=== PATIENT | female | born 1935 | race Caucasian/White ===

== ENCOUNTER 2018-08-19 19:05 | Inpatient (IN) | payer OTHER ==
[~2018-08-19] VITALS: Ht 154.9 cm; Wt 73.5 kg
--- NOTE | 2018-08-19 19:19 | NUR ---
BIB [facility] FROM [facility] FOR PSYCH EVAL. PT C/O CONSTIPATION X 5 DAYS. SHE IS AOX4, AMB, VSS, RR EVEN AND UNLABORED. SKIN WARM DRY INTACT. DENIES SOB, DIZZINESS, WEAKNESS, N/V. NO ACUTE DISTRESS NOTED. FRIEND AT BEDSIDE. READY FOR EVAL.
[2018-08-19 19:58] LABS: BASOPHILS # (AUTO) 0.1 /CMM (0.0-0.2); BASOPHILS % (AUTO) 0.9 % (0.0-2.0); EOSINOPHILS % (AUTO) 0.7 % (0.0-6.0); HEMATOCRIT 38 % (33-45); LYMPHOCYTES # (AUTO) 1.8 /CMM (0.8-4.8); LYMPHOCYTES % (AUTO) 13.5 % (20.0-44.0); MEAN CORPUSCULAR HGB CONC 34 g/dl (31.0-36.0); MEAN CORPUSCULAR VOLUME 88 fL (82-100); MONOCYTES # (AUTO) 0.6 /CMM (0.1-1.30); MONOCYTES % (AUTO) 4.6 % (2.0-12.0); NEUTROPHILS # (AUTO) 10.6 /CMM (1.8-8.9); NEUTROPHILS % (AUTO) 80.3 % (43.0-81.0); PLATELET COUNT (AUTO) 239 /CMM (150-450); RED BLOOD CELL COUNT(AUTO) 4.36 MIL/uL (4.0-5.2); WHITE BLOOD COUNT (AUTO) 13.2 K/uL (4.3-11.0)
[2018-08-19 20:07] LABS: CARBON DIOXIDE 27 mmol/L (21-32); CHLORIDE 106 mmol/L (98-107); CREATININE 1.5 mg/dL (0.6-1.3); GLUCOSE 232 mg/dL (74-106); POTASSIUM 4.3 mmol/L (3.5-5.1); SODIUM SERUM 140 mmol/L (136-145); UREA NITROGEN, BLOOD 26 mg/dL (7-18)
[2018-08-19 20:24] LABS: ALANINE AMINOTRANSFERASE 14 U/L (12-78); ALCOHOL, BLOOD < 3 mg/dL (0-0); ALKALINE PHOSPHATASE 126 U/L (46-116); ASPARTATE AMINOTRANSFERASE 6 U/L (15-37); BILIRUBIN,DIRECT 0.1 mg/dL (0.0-0.2); BILIRUBIN,TOTAL 0.4 mg/dL (0.2-1.0); SALICYLATE 1.2 mg/dL (2.8-20.0); TOTAL PROTEIN, SERUM 6.5 g/dL (6.4-8.2)
[2018-08-19 20:25] LABS: ACETAMINOPHEN < 2 ug/ml (10-30)
--- NOTE | 2018-08-19 20:37 | NUR ---
URINE OBTAINED AND SENT TO STAT LAB
[2018-08-19 20:41] LABS: APPEARANCE,URINE Clear (CLEAR); BILIRUBIN,URINE Negative (NEGATIVE); BLOOD, URINE Trace-intact Ery/uL (NEGATIVE); COLOR,URINE Yellow (YELLOW); KETONES,URINE Negative (NEGATIVE); LEUKOCYTE ESTERASE ,URINE Small (NEGATIVE); NITRITE, URINE Negative (NEGATIVE); PH,URINE 5.5 (5.0-8.0); PROTEIN,URINE Negative (NEGATIVE); UGLUCOSE Negative (NEGATIVE); UROBILINOGEN,URINE 0.2 EU/dL (0.2)
[2018-08-19 20:49] LABS: BACTERIA,URINE Few /HPF (None Seen); SQUAMOUS EPITHELIAL CELL,UR Few /HPF (None Seen)
[2018-08-19 20:50] LABS: RBC,URINE 0-2 /HPF (0-2)
[2018-08-19] MEDS ORDERED: MAGNESIUM HYDROXIDE 30 ML UDC ONE (21:39)
[2018-08-19] MEDS ORDERED: OLANZAPINE 5 MG TABLET ONE (21:40)
[2018-08-19] MEDS ORDERED: LORAZEPAM 1 MG TABLET ONE (21:40)
[2018-08-19] MEDS ORDERED: LORAZEPAM 1 MG TABLET PO ONE (22:00)
[2018-08-19] MEDS ORDERED: OLANZAPINE 5 MG TABLET PO ONE (22:00)
[2018-08-19] MEDS ORDERED: MAGNESIUM HYDROXIDE 30 ML UDC PO ONE (22:00)
--- NOTE | 2018-08-19 22:10 | NUR ---
PT GETTING INCREASINGLY AGITATED. ATTEMPTS TO CALM HER
[2018-08-19] MEDS ORDERED: NA PHOS,M-B/NA PHOS,DI-BA 1 EA ENEMA RC ONE ×2 (22:56→23:30)
--- NOTE | 2018-08-19 23:05 | NUR ---
ATTEMPTED TO ADMIN FLEET ENEMA PER MD, HOWEVER PT COMPLAINED OF TOO MUCH PAIN AND ASKED TO STOP. MD AWARE
[2018-08-19] MEDS ORDERED: POLYETHYLENE GLYCOL 3350 17 GM POWD.PACK ONE (23:15)
[2018-08-19] MEDS ORDERED: POLYETHYLENE GLYCOL 3350 17 GM POWD.PACK PO ONE (23:30)
[2018-08-20] MEDS ORDERED: MAGNESIUM CITRATE 296 ML BOTTLE ONE (00:56)
[2018-08-20] MEDS: MAGNESIUM CITRATE 296 ML BOTTLE PO ONE ×2 (01:02→01:03)
[2018-08-20] MEDS ORDERED: LACTULOSE 10 G/15 ML UDC (PYXIS) ONE (01:49)
--- NOTE | 2018-08-20 01:56 | NUR ---
[facility], TRIP # [id number]
[2018-08-20] MEDS ORDERED: LACTULOSE 10 G/15 ML UDC (PYXIS) PO ONE (02:00)
--- NOTE | 2018-08-20 02:03 | NUR ---
DR MCPHERSON IS SPEAKING TO THE PT. PER DR. MCPHERSON, I'M CALLING [facility] TO GET THE PT'S DAUGHTER'S PHONE NUMBER. SPOKE TO THANH WILLIAM. THE NURSING SMUDGER STATED THAT THE PT IS SINGLE AND HAS NO CHILDREN
--- NOTE | 2018-08-20 02:15 | NUR ---
Per dr Rodriguez pt ok to be discharged home. Pt a/ox3. No signs of distress noted. pt vital signs stable.
--- NOTE | 2018-08-20 02:40 | NUR ---
nursing rate supervisor speaking with patient
--- NOTE | 2018-08-20 04:15 | NUR ---
PT AMBULATED TO ER 6. PT STATED THAT SHE HAD A SMALL WATERY BM, BUT STILL FEELS CONSTIPATED. PT REC'D A WARM BLANKET AND THE OVERHEAD LIGHTS WERE TURNED OFF AT PT'S REQUEST. PT APPEARS TO BE RESTING COMFORTABLY.
--- NOTE | 2018-08-20 05:45 | NUR ---
PT AMBULATED TO THE BATHROOM WITH A SLOW STEADY GAIT. PT STATED THAT SHE FEELS NAUSEATED. NOTIFIED.
--- NOTE | 2018-08-20 06:01 | NUR ---
PT RETURNED TO ER #6 WITH A STEADY GAIT. PT STATED THAT SHE FELT NAUSEATED.
--- NOTE | 2018-08-20 06:01 | NUR ---
PT STATED: " I CAN'T GO HOME. THERE'S NO ONE THERE TO HELP ME."
--- NOTE | 2018-08-20 06:50 | NUR ---
PT YELLED OUT THAT SHE WAS COLD. PT REC'D 2 MORE WARM BLANKETS. PT C/O FEELING COLD AND NOT BEING HELPED. PT STATED: " I WANT TO GO HOME AND I WILL TAKE CARE OF MYSELF.i WILL HIRE SOMEONE IF I NEED HELP. I HAVE MONEY TO DO THAT AND A WARM HOUSE AND BLANKETS."
--- NOTE | 2018-08-20 08:00 | NUR ---
PT DOES NOT WANT TO GO BACK TO [facility], AWAITING ELECTRIC SEALING MACHINE OPERATOR TO SPEAK W PT
--- NOTE | 2018-08-20 08:02 | NUR ---
SPOKE WITH [employer] PROGRAMMER KRISSY, WHO STATED SHE WILL COORDINATE WITH [facility] TO FIND ALTERNATIVE PLACEMENT FOR THE PATIENT
--- NOTE | 2018-08-20 09:00 | NUR ---
BREAKFAST TRAY GIVEN TO PT
--- NOTE | 2018-08-20 09:01 | NUR ---
ED NOTES, LABS, MEDS, CRISIS TEAM EVAL FAXED TO [facility] AT [phone] @ 0901 - FAXED OK. CREDIT RISK ASSOCIATE CRISTINA DUMONT [phone] WILL TRY TO FIND ANOTHER FACILITY.
--- NOTE | 2018-08-20 09:40 | NUR ---
KEY PUNCH OPERATOR AT BEDSIDE
[2018-08-20] MEDS ORDERED: ONDA4TAB5 PO (11:15)
[2018-08-20] MEDS ORDERED: NA P133E RC (11:15)
[2018-08-20] MEDS ORDERED: RISP0.253 PO (11:15)
[2018-08-20] MEDS ORDERED: GABA-534 PO (11:15)
[2018-08-20] MEDS ORDERED: LINA145C PO (11:15)
[2018-08-20] MEDS ORDERED: PANT40TA2 PO (11:15)
[2018-08-20] MEDS ORDERED: CLOT10TR MM (11:15)
[2018-08-20] MEDS ORDERED: AMIN30LI2 PO (11:15)
[2018-08-20] MEDS ORDERED: MULT-447 PO (11:15)
[2018-08-20] MEDS ORDERED: CELE200C PO (11:15)
[2018-08-20] MEDS ORDERED: CYAN500T4 PO (11:15)
[2018-08-20] MEDS ORDERED: SENN-168 PO (11:15)
[2018-08-20] MEDS ORDERED: TRAM50TA2 PO (11:15)
[2018-08-20] MEDS ORDERED: HYDR30CR99 RC (11:15)
[2018-08-20] MEDS ORDERED: DOCU-141 PO (11:15)
--- NOTE | 2018-08-20 12:51 | NUR ---
LUNCH TRAY GIVEN TO PT. TOLERATING PO WELL
--- NOTE | 2018-08-20 14:08 | NUR ---
PT RESTING COMFORTABLY IN BED. WILL CONTINUE TO MONITOR
--- NOTE | 2018-08-20 16:08 | NUR ---
PT AGITATED, BELLIGERENT, VERBALLY ABUSIVE, SPITS TO STAFF, INISISTING SHE WANTS TO GO HOME.
[2018-08-20] MEDS ORDERED: OLANZAPINE 10 MG VIAL IM ONE ×2 (16:14→16:30)
[2018-08-20] MEDS ORDERED: LORAZEPAM INJ 2 MG/ML VIAL IVP ONE (16:30)
--- NOTE | 2018-08-20 16:42 | NUR ---
PT AGITATED, KEEPS ON WANDERING AROUND ED STATING SHE WANTS TO GO HOME, HITS STAFF, BITES ANYONE WHO HOLDS HER. EXPLAINED THAT WE CANNOT CONTACT HER DAUGHTER. PT CONTINOUSLY CURSES AND HITS STAFF
[2018-08-20] MEDS ORDERED: LORAZEPAM INJ 2 MG/ML VIAL ONE (17:04)
[2018-08-20] MEDS ORDERED: LORAZEPAM INJ 2 MG/ML VIAL IM ONE (17:30)
--- NOTE | 2018-08-20 19:24 | NUR ---
Patient is resting comfortably in bed with eyes closed. Easily aroused. VSS
--- NOTE | 2018-08-20 19:59 | NUR ---
REPORT GIVEN TO ELIZABETH PSYCH FOR CONTINUATION OF CARE.
--- NOTE | 2018-08-20 21:00 | NUR ---
GPS HIGHWAY ENGINEER NOTES Received patient from ER via rney accompanied by 1 ER staff. 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 Barnes and LUTHER Easton. Patient on 5150 hold due to danger to self trying, to escape from ER. Admission routine done. Initial skin assessment done, photos taken and documented. Patient is A/O x1, confused, unkempt, disheveled, cooperative and obeys commands. No aggitation noted. Ambulatory with unsteady gait noted. Able to walk from bed to bathroom with 1 person assist. Belongings inventory completed by the PHYS THER assigned. Patient denies any discomfort at this time. On RA, no SOB/respiratory distress noted. Kept patient comfortable on bed. Kept bed in lowest position and locked, siderails x3 up. Call light at bedside. Will continue to monitor accordingly. ADMITTED A 78YO FEMALE FROM [facility] ON 5150 HOLD FOR DANGER TO SELF. PER HOLD , THE PATIENT WAS BROUGHT TO [facility] AFTER SHE OVERDOSED ON PRESCRIBED MEDICATIONS. SHE WAS FOUND BY FAMILY MEMBERS ON THE FLOOR WITH DRY VOMIT NEXT TO HER MOUTH.
[2018-08-20] MEDS ORDERED: ACETAMINOPHEN 325 MG TABLET PO PRN (22:00)
[2018-08-20] MEDS ORDERED: LORAZEPAM 0.5 MG TABLET PO PRN (22:00)
[2018-08-20] MEDS ORDERED: MAG HYDROX/AL HYDROX/SIMETH 30 ML UDC PO PRN (22:00)
[2018-08-21] MEDS ORDERED: HYDROCORTISONE CR 30 GM TUBE RC PRN (06:00)
[2018-08-21] MEDS: NITROFURANTOIN/NITROFURAN MAC 100 MG CAPSULE PO SCH ×3 (06:14→21:57)
[2018-08-21 07:31] LABS: CREATININE 1.4 mg/dL (0.6-1.3)
[2018-08-21 07:35] LABS: BASOPHILS # (AUTO) 0.1 /CMM (0.0-0.2); BASOPHILS % (AUTO) 0.7 % (0.0-2.0); CHOLESTEROL 211 mg/dL (<200); EOSINOPHILS % (AUTO) 1.8 % (0.0-6.0); HDL CHOLESTEROL 54 mg/dL (40-60); HEMATOCRIT 37 % (33-45); HEMOGLOBIN 12.5 g/dL (11.5-14.8); LDL 137 mg/dL (0-99); LYMPHOCYTES % (AUTO) 18.3 % (20.0-44.0); MEAN CORPUSCULAR HGB CONC 34 g/dl (31.0-36.0); MEAN CORPUSCULAR VOLUME 88 fL (82-100); MONOCYTES # (AUTO) 0.8 /CMM (0.1-1.30); MONOCYTES % (AUTO) 7.8 % (2.0-12.0); NEUTROPHILS # (AUTO) 7.7 /CMM (1.8-8.9); NEUTROPHILS % (AUTO) 71.4 % (43.0-81.0); PLATELET COUNT (AUTO) 226 /CMM (150-450); RED BLOOD CELL COUNT(AUTO) 4.17 MIL/uL (4.0-5.2); TRIGLYCERIDES 105 mg/dL (30-150); WHITE BLOOD COUNT (AUTO) 10.8 K/uL (4.3-11.0)
[2018-08-21 07:54] LABS: CALCIUM, SERUM 8.6 mg/dL (8.5-10.1); CARBON DIOXIDE 25 mmol/L (21-32); CHLORIDE 109 mmol/L (98-107); CREATININE 1.3 mg/dL (0.6-1.3); GLUCOSE 106 mg/dL (74-106); SODIUM SERUM 143 mmol/L (136-145); UREA NITROGEN, BLOOD 26 mg/dL (7-18)
[2018-08-21 08:00] VITALS: BP 99/56
[2018-08-21] MEDS: CYANOCOBALAMIN 500 MCG TABLET PO SCH (08:17)
[2018-08-21] MEDS: PANTOPRAZOLE 40 MG TABLET.DR PO SCH (08:17)
[2018-08-21] MEDS: DOCUSATE SODIUM 100 MG CAPSULE PO SCH ×2 (08:18→21:57)
[2018-08-21] MEDS: MULTIVITAMINS,THERAGRAN 1 UDTAB TABLET PO SCH (08:18)
[2018-08-21] MEDS: GABAPENTIN 300 MG CAPSULE PO PRN (08:18)
[2018-08-21] MEDS: CLOTRIMAZOLE 10 MG TROCHE MM SCH ×6 (09:03→22:02)
--- NOTE | 2018-08-21 10:52 | NUR ---
WOUND CARE CONSULT: PT SLEEPING VERY SOUNDLY AT THIS TIME. PER NURSING STAFF, PT DID NOT SLEEP LAST NIGHT AND WAS VERY AGITATED. RECOMMENDATIONS MADE FOR SKIN CARE AND PROTECTION BASED ON NURSING DOCUMENTATION AND PHOTOS. WILL SEE PRNDonna MCCLENDON IN AGREEMENT WITH PLAN OF CARE.
[2018-08-21] MEDS: Z GUARD REMEDY 2 OZ OINT TP SCH (11:00)
[2018-08-21] MEDS ORDERED: Z GUARD REMEDY 2 OZ OINT TP PRN (11:00)
[2018-08-21] MEDS: CELECOXIB 100 MG CAPSULE PO SCH ×2 (11:00→21:57)
[2018-08-21 16:00] VITALS: BP 115/44
[2018-08-21] MEDS: CLOTRIMAZOLE 1% 15 GM TUBE TP SCH (16:06)
[2018-08-21 20:00] VITALS: BP 95/72
[2018-08-21 21:00] VITALS: BP 100/67
--- NOTE | 2018-08-21 21:00 | NUR ---
GPS RN NOTES: DR. MURRIETA MADE AWAR OF PT. HAS BEEN VERY SEDATED , WOULD WAKE UP, OPEN EYES BRIEFLY AND WOULD FALL BACK TO SLEEP. VITAL SIGNS STABLE , DR. MURRIETA VERBALIZE ORDERS FOR CHECK BLOOD SUGAR , BLOOD SUGAR # 103 , GIVE ORANGE JUICE WITH HS SNACK , PER DR. MURRIETA WILL CONTINUE TO MONITOR .
[2018-08-21] MEDS: SENNOSIDES 8.6 MG TABLET PO SCH (21:57)
[2018-08-21 23:00] VITALS: BP 102/70
--- NOTE | 2018-08-21 23:00 | NUR ---
GPS RN NOTES : PT. TOOK ALL HS MEDS, NO ACUTE DISTRESS NOTED , DENIES ANY DISCOMFORT, PROVIDE ORAL FLUIDS.
[2018-08-22] MEDS: CLOTRIMAZOLE 10 MG TROCHE MM SCH ×5 (07:00→20:55)
[2018-08-22 08:00] VITALS: BP 124/52
[2018-08-22] MEDS: PANTOPRAZOLE 40 MG TABLET.DR PO SCH (08:11)
[2018-08-22] MEDS: DOCUSATE SODIUM 100 MG CAPSULE PO SCH ×2 (08:11→20:56)
[2018-08-22] MEDS: NITROFURANTOIN/NITROFURAN MAC 100 MG CAPSULE PO SCH (08:11)
[2018-08-22] MEDS: CELECOXIB 100 MG CAPSULE PO SCH ×2 (08:11→20:56)
[2018-08-22] MEDS: CYANOCOBALAMIN 500 MCG TABLET PO SCH (08:11)
[2018-08-22] MEDS: MULTIVITAMINS,THERAGRAN 1 UDTAB TABLET PO SCH (08:11)
[2018-08-22] MEDS: CLOTRIMAZOLE 1% 15 GM TUBE TP SCH ×2 (08:13→17:20)
[2018-08-22] MEDS: Z GUARD REMEDY 2 OZ OINT TP SCH (08:14)
--- NOTE | 2018-08-22 09:11 | NUR ---
WOUND CARE CONSULT: PT PRESENTS WITH RED RASH TO RT BREASTFOLD, PRESENT ON ADMISSION. RECOMMENDATIONS MADE FOR SKIN PROTECTION AND DISCUSSED WITH NURSING STAFF. WILL SEE PRN. MCCLENDON IN AGREEMENT WITH PLAN OF CARE. Addendum: 08/22/18 at 0911 by GENO PORTILLO WNDNU Amended: Links added.
--- NOTE | 2018-08-22 09:32 | NUR ---
SW contacted [facility] Address: [address] [place] [address] and spoke with Ashlyn, sales service coordinator who stated facility is not taking pt back and also stated that pt does not want to be at their facility.
--- NOTE | 2018-08-22 10:59 | NUR ---
INITIAL DISCHARGE PLAN: Pt came from [facility] Address: [address] [place] [address] . However, Facility is not accepting pt back as pt does not want to go back to a SNF. Per pt she wishes to return home to [address] [place] [address]. Pt stated that she would hire a caregiver. SW will help form a safe and proper discharge in collaboration with pt and MD.
--- NOTE | 2018-08-22 11:06 | NUR ---
UR NOTE: CHRISTOPHER faxed SNF referral to Adelina welfare case worker at [facility] [phone] for review.
--- NOTE | 2018-08-22 11:07 | NUR ---
UR NOTE: CHRISTOPHER contacted Lizabeth, aftercare coordinator at [facility] [phone] ext [phone] and left a voicemail informing her pt needs after care appointments to psych and therapy and also home health.
--- NOTE | 2018-08-22 11:45 | NUR ---
GPS RN NOTE: T/O DR KETTY COLÓN MICROBID 100 MG PO Q12 HR ORDER PLACED AND CARED OUT
[2018-08-22 16:00] VITALS: BP 113/63
[2018-08-22] MEDS: MAGNESIUM HYDROXIDE 30 ML UDC PO PRN (17:36)
[2018-08-22 20:51] VITALS: BP 108/66
[2018-08-22] MEDS: MUPIROCIN OINT 2% 22 GM TUBE SCH (20:56)
[2018-08-22] MEDS: risperiDONE 1 MG TABLET PO SCH (21:24)
[2018-08-22] MEDS: SENNOSIDES 8.6 MG TABLET PO SCH (21:25)
[2018-08-22] MEDS: TRAMADOL HCL 50 MG TABLET PO PRN (21:35)
[2018-08-22 22:00] VITALS: BP 117/66
[2018-08-23] MEDS: CLOTRIMAZOLE 10 MG TROCHE MM SCH ×5 (06:45→21:15)
[2018-08-23 08:00] VITALS: BP 104/54
[2018-08-23] MEDS: Z GUARD REMEDY 2 OZ OINT TP SCH (08:27)
[2018-08-23] MEDS: MUPIROCIN OINT 2% 22 GM TUBE SCH ×2 (08:27→21:15)
[2018-08-23] MEDS: CLOTRIMAZOLE 1% 15 GM TUBE TP SCH ×2 (08:44→17:11)
[2018-08-23] MEDS: DOCUSATE SODIUM 100 MG CAPSULE PO SCH ×2 (08:44→21:15)
[2018-08-23] MEDS: CYANOCOBALAMIN 500 MCG TABLET PO SCH (08:44)
[2018-08-23] MEDS: MULTIVITAMINS,THERAGRAN 1 UDTAB TABLET PO SCH (08:44)
[2018-08-23] MEDS: PANTOPRAZOLE 40 MG TABLET.DR PO SCH (08:44)
[2018-08-23] MEDS: risperiDONE 1 MG TABLET PO SCH ×2 (08:44→21:15)
[2018-08-23] MEDS: CELECOXIB 100 MG CAPSULE PO SCH ×2 (08:44→21:15)
[2018-08-23 09:05] LABS: CALCIUM, SERUM 8.8 mg/dL (8.5-10.1); CARBON DIOXIDE 25 mmol/L (21-32); CHLORIDE 108 mmol/L (98-107); CREATININE 1.6 mg/dL (0.6-1.3); GLUCOSE 102 mg/dL (74-106); POTASSIUM 3.9 mmol/L (3.5-5.1); SODIUM SERUM 143 mmol/L (136-145); UREA NITROGEN, BLOOD 47 mg/dL (7-18)
--- NOTE | 2018-08-23 10:14 | NUR ---
UR NOTE: CHRISTOPHER faxed a clinical to Adelina ([phone]), employment evaluator/case manager at [facility] to the fax number: [phone] for review.
[2018-08-23 16:00] VITALS: BP 115/65
[2018-08-23 19:58] VITALS: BP 146/74
[2018-08-23] MEDS: MAGNESIUM HYDROXIDE 30 ML UDC PO PRN (20:05)
[2018-08-23] MEDS: SENNOSIDES 8.6 MG TABLET PO SCH (21:15)
[2018-08-23] MEDS: TRAMADOL HCL 50 MG TABLET PO PRN (21:27)
[2018-08-23 22:15] VITALS: BP 116/65
[2018-08-24] MEDS: CLOTRIMAZOLE 10 MG TROCHE MM SCH ×5 (06:13→20:32)
--- NOTE | 2018-08-24 06:42 | NUR ---
GPS-RN NOTES: PER PATIENT " I WENT TO THE BATHROOM AND I'M FEELING DIZZY". NO C/O NAUSEA OR VOMITING AT THIS TIME. WHEN ASKED PATIENT TO GATHER MORE INFORMATION OR ASSESSMENT PATIENT STATED "GET OUT OF HERE AND TURN OFF THE LIGHT". PATIENT REFUSED TO TAKE VITAL SIGNS DESPITE EDUCATION GIVEN. CHARGE NURSE MADE AWARE. WILL ENDORSE TO THE DAY SHIFT NURSE FOR CONTINUITY OF CARE.
[2018-08-24 08:00] VITALS: BP 111/60
--- NOTE | 2018-08-24 08:37 | NUR ---
UR NOTE: CHRISTOPHER faxed a clinical to Adelina ([phone]), case planner at [facility] to the fax number: [phone] for review.
[2018-08-24] MEDS: risperiDONE 1 MG TABLET PO SCH ×2 (08:38→20:36)
[2018-08-24] MEDS: Z GUARD REMEDY 2 OZ OINT TP SCH (08:38)
[2018-08-24] MEDS: MULTIVITAMINS,THERAGRAN 1 UDTAB TABLET PO SCH (08:38)
[2018-08-24] MEDS: PANTOPRAZOLE 40 MG TABLET.DR PO SCH (08:38)
[2018-08-24] MEDS: CYANOCOBALAMIN 500 MCG TABLET PO SCH (08:38)
[2018-08-24] MEDS: CELECOXIB 100 MG CAPSULE PO SCH (08:38)
[2018-08-24] MEDS: DOCUSATE SODIUM 100 MG CAPSULE PO SCH ×2 (08:38→20:33)
[2018-08-24] MEDS: MUPIROCIN OINT 2% 22 GM TUBE SCH ×2 (08:45→20:33)
[2018-08-24] MEDS: CLOTRIMAZOLE 1% 15 GM TUBE TP SCH ×2 (08:46→16:49)
[2018-08-24 10:00] VITALS: BP 123/65
--- NOTE | 2018-08-24 11:49 | NUR ---
GPS/RN-NOTES DR. METZGER MADE AWARE OF DR. REESE RECOMMENDATIONS TO DC CELEBREX. DR. METZGER VERBAL ORDER TO D/C CELEBREX.NOTED AND CARRIED OUT.
--- NOTE | 2018-08-24 13:32 | NUR ---
UR NOTE: CHRISTOPHER contacted Lizabeth, aftercare coordinator at [facility] [phone] ext [phone] and informed her pt needs after care appointments to psych and therapy and also home health. Lizabeth stated that she would start looking for after care appointments for pt. CHRISTOPHER will request home health order from hospitalist and fax to Lizabeth to receive authorization from [facility]. CHRISTOPHER also requested pts daughter contact information. Per Lizabeth, they do not have a contact number for Daughter and also do not have authorization to speak to her.
[2018-08-24 16:00] VITALS: BP 124/70
[2018-08-25] MEDS: CLOTRIMAZOLE 10 MG TROCHE MM SCH ×5 (07:17→20:41)
[2018-08-25 08:00] VITALS: BP 116/65
--- NOTE | 2018-08-25 08:32 | NUR ---
UR NOTE: CHRISTOPHER faxed a clinical to Adelina ([phone]), pillowcase turner at [facility] to the fax number: [phone] for review.
[2018-08-25] MEDS: PANTOPRAZOLE 40 MG TABLET.DR PO SCH (08:49)
[2018-08-25] MEDS: risperiDONE 1 MG TABLET PO SCH ×2 (09:00→20:43)
[2018-08-25] MEDS: MUPIROCIN OINT 2% 22 GM TUBE SCH ×2 (09:00→20:42)
[2018-08-25] MEDS: Z GUARD REMEDY 2 OZ OINT TP SCH (09:00)
[2018-08-25] MEDS: CYANOCOBALAMIN 500 MCG TABLET PO SCH (09:00)
[2018-08-25] MEDS: DOCUSATE SODIUM 100 MG CAPSULE PO SCH ×2 (09:00→20:43)
[2018-08-25] MEDS: MULTIVITAMINS,THERAGRAN 1 UDTAB TABLET PO SCH (09:00)
[2018-08-25] MEDS: CLOTRIMAZOLE 1% 15 GM TUBE TP SCH ×2 (09:00→16:07)
--- NOTE | 2018-08-25 09:41 | NUR ---
GPS/RN-NOTES PATIENT STRONGLY REFUSED ALL 0900AM MEDICATIONS. EXPLAINED RISK AND BENEFITS BUT PATIENT GETS ANGRY AT THE MANAGER COST. STATED" GO AWAY I DON'T TAKE MEDICATIONS ,YOU TAKE IT AND LEAVE ME ALONE". OFFERED X3. CHARGE NURSE AWARE.
--- NOTE | 2018-08-25 11:07 | NUR ---
UR NOTE: CHRISTOPHER faxed home health referral to Adelina ([phone]), hospice case manager at [facility] to the fax number: [phone]
[2018-08-25 16:00] VITALS: BP 102/71
[2018-08-26] MEDS: CLOTRIMAZOLE 10 MG TROCHE MM SCH ×5 (06:52→21:00)
[2018-08-26] MEDS: PANTOPRAZOLE 40 MG TABLET.DR PO SCH (07:30)
[2018-08-26 08:00] VITALS: BP 154/85
[2018-08-26] MEDS: Z GUARD REMEDY 2 OZ OINT TP SCH (09:00)
[2018-08-26] MEDS: DOCUSATE SODIUM 100 MG CAPSULE PO SCH ×2 (09:00→21:00)
[2018-08-26] MEDS: CYANOCOBALAMIN 500 MCG TABLET PO SCH (09:00)
[2018-08-26] MEDS: MULTIVITAMINS,THERAGRAN 1 UDTAB TABLET PO SCH (09:00)
[2018-08-26] MEDS: risperiDONE 1 MG TABLET PO SCH ×2 (09:00→21:00)
[2018-08-26] MEDS: MUPIROCIN OINT 2% 22 GM TUBE SCH ×2 (09:00→21:00)
[2018-08-26] MEDS: CLOTRIMAZOLE 1% 15 GM TUBE TP SCH ×2 (09:00→16:48)
--- NOTE | 2018-08-26 12:12 | NUR ---
GPS/RN PT REFUSED 0900 AND 1100 MEDS OFFERED ON MULTIPLE OCCASIONS. PT REFUSED TO EAT BREAKFAST AND REFUSED TO GET OUT OF THE BED WELL. PT IS PARANOID AND STATES :" I AM .." NO SI OR HI NOTED AT THIS TIME.
[2018-08-26 16:00] VITALS: BP_SYST 117; BP_SYST 140; BP_DIAS 69; BP_DIAS 72
--- NOTE | 2018-08-26 22:19 | NUR ---
REFUSED NIGHT MEDICATIONS AND TREATMENT AND SKIN CARE. VERY UNCOOPERATIVE, VERBALLY ABUSIVE.
--- NOTE | 2018-08-27 00:30 | NUR ---
GPS RN NOTES PT SLEEPING. EASILY AROUSABLE. NOT IN ANY DISTRESS. NO SOB NOTED. NO S/SX OF ANY PAIN OR DISCOMFORT AT THIS TIME. WILL CONTINUE TO MONITOR FOR BEHAVIOR AND SAFETY.
[2018-08-27] MEDS: CLOTRIMAZOLE 10 MG TROCHE MM SCH ×5 (07:00→21:00)
[2018-08-27 07:12] LABS: BASOPHILS # (AUTO) 0.1 /CMM (0.0-0.2); BASOPHILS % (AUTO) 0.8 % (0.0-2.0); EOSINOPHILS % (AUTO) 2.7 % (0.0-6.0); HEMATOCRIT 34 % (33-45); HEMOGLOBIN 11.7 g/dL (11.5-14.8); LYMPHOCYTES # (AUTO) 2.2 /CMM (0.8-4.8); LYMPHOCYTES % (AUTO) 23.8 % (20.0-44.0); MEAN CORPUSCULAR HGB CONC 34 g/dl (31.0-36.0); MEAN CORPUSCULAR VOLUME 87 fL (82-100); MONOCYTES # (AUTO) 0.9 /CMM (0.1-1.30); MONOCYTES % (AUTO) 9.3 % (2.0-12.0); NEUTROPHILS # (AUTO) 5.9 /CMM (1.8-8.9); NEUTROPHILS % (AUTO) 63.4 % (43.0-81.0); PLATELET COUNT (AUTO) 268 /CMM (150-450); RED BLOOD CELL COUNT(AUTO) 3.92 MIL/uL (4.0-5.2); WHITE BLOOD COUNT (AUTO) 9.4 K/uL (4.3-11.0)
[2018-08-27] MEDS: PANTOPRAZOLE 40 MG TABLET.DR PO SCH (07:30)
--- NOTE | 2018-08-27 07:30 | NUR ---
PT RECEIVED RESTING COMFORTABLY IN BED WITH EYES CLOSED. NO S/S OR C/O PAIN OR DISTRESS NOTED. SIDE RAILS UP X2. GPS SAFETY PROTOCOL MET. WILL CONTINUE PLAN OF CARE.
[2018-08-27 07:34] LABS: CALCIUM, SERUM 8.8 mg/dL (8.5-10.1); CARBON DIOXIDE 25 mmol/L (21-32); CHLORIDE 107 mmol/L (98-107); CREATININE 1.3 mg/dL (0.6-1.3); GLUCOSE 110 mg/dL (74-106); POTASSIUM 4.3 mmol/L (3.5-5.1); SODIUM SERUM 140 mmol/L (136-145); UREA NITROGEN, BLOOD 26 mg/dL (7-18)
[2018-08-27] MEDS: MULTIVITAMINS,THERAGRAN 1 UDTAB TABLET PO SCH (09:00)
[2018-08-27] MEDS: CYANOCOBALAMIN 500 MCG TABLET PO SCH (09:00)
[2018-08-27] MEDS: Z GUARD REMEDY 2 OZ OINT TP SCH (09:00)
[2018-08-27] MEDS: risperiDONE 1 MG TABLET PO SCH ×2 (09:00→21:00)
[2018-08-27] MEDS: MUPIROCIN OINT 2% 22 GM TUBE SCH ×2 (09:00→21:00)
[2018-08-27] MEDS: DOCUSATE SODIUM 100 MG CAPSULE PO SCH ×2 (09:00→21:00)
[2018-08-27] MEDS: CLOTRIMAZOLE 1% 15 GM TUBE TP SCH ×2 (09:00→17:00)
[2018-08-27 20:00] VITALS: BP 118/63
--- NOTE | 2018-08-27 22:00 | NUR ---
GPS RN NOTES: PATIENT REFUSED HER SCHEDULED MEDICATIONS-SHE FUTHER REFUSED HER TREATMENTS WITH BACTROBAN AND SKIN TREATMENT. EXPLAINED TO PATIENT THE NEED FOR SUCH TREATMENTS. BUT PATIENT ANGRILY RESPONDS THE NURSE AND ASKED TO BE ALONE. WILL ENDORSE TO DAY SHIFT NURSE.
[2018-08-28] MEDS: CLOTRIMAZOLE 10 MG TROCHE MM SCH ×5 (07:00→21:32)
[2018-08-28 08:00] VITALS: BP 112/66
[2018-08-28] MEDS: CYANOCOBALAMIN 500 MCG TABLET PO SCH (08:50)
[2018-08-28] MEDS: GABAPENTIN 300 MG CAPSULE PO PRN (08:50)
[2018-08-28] MEDS: PANTOPRAZOLE 40 MG TABLET.DR PO SCH (08:50)
[2018-08-28] MEDS: DOCUSATE SODIUM 100 MG CAPSULE PO SCH ×2 (08:50→21:31)
[2018-08-28] MEDS: risperiDONE 1 MG TABLET PO SCH ×2 (08:50→21:31)
[2018-08-28] MEDS: MULTIVITAMINS,THERAGRAN 1 UDTAB TABLET PO SCH (08:50)
[2018-08-28] MEDS: MUPIROCIN OINT 2% 22 GM TUBE SCH ×2 (08:54→21:32)
[2018-08-28] MEDS: Z GUARD REMEDY 2 OZ OINT TP SCH (08:54)
[2018-08-28] MEDS: CLOTRIMAZOLE 1% 15 GM TUBE TP SCH ×2 (08:54→16:21)
--- NOTE | 2018-08-28 09:50 | NUR ---
UR NOTE: CHRISTOPHER faxed clinical review to Adelina ([phone]), case supervisor at [facility] to the fax number: [phone]
--- NOTE | 2018-08-28 11:16 | NUR ---
UR NOTE: CHRISTOPHER received a phone call from Adelina ([phone]), ed case manager at [facility] stating pts home health order had been approved and stated to fax clinical information to [facility] Address: [address] [place] [address] once pt is discharged. CHRISTOPHER also informed Adelina that pt has been refusing medication since 08/25/18 and had informed MD to file a RIESE PETITION.
[2018-08-28 16:00] VITALS: BP 100/52
[2018-08-28 20:16] VITALS: BP 92/50
[2018-08-29] MEDS: CLOTRIMAZOLE 10 MG TROCHE MM SCH ×3 (06:36→15:00)
[2018-08-29 08:00] VITALS: BP 120/70
[2018-08-29] MEDS: DOCUSATE SODIUM 100 MG CAPSULE PO SCH (08:30)
[2018-08-29] MEDS: MULTIVITAMINS,THERAGRAN 1 UDTAB TABLET PO SCH (08:30)
[2018-08-29] MEDS: PANTOPRAZOLE 40 MG TABLET.DR PO SCH (08:30)
[2018-08-29] MEDS: CYANOCOBALAMIN 500 MCG TABLET PO SCH (08:30)
[2018-08-29] MEDS: risperiDONE 1 MG TABLET PO SCH (08:30)
[2018-08-29] MEDS: MUPIROCIN OINT 2% 22 GM TUBE SCH ×2 (08:31→08:43)
[2018-08-29] MEDS: Z GUARD REMEDY 2 OZ OINT TP SCH (08:32)
[2018-08-29] MEDS: CLOTRIMAZOLE 1% 15 GM TUBE TP SCH (08:32)
--- NOTE | 2018-08-29 08:39 | NUR ---
Pt took medication yesterday 08/28/18 and will be discharged home with home health on this present day by Psychiatrist Dr. Barnes.
--- NOTE | 2018-08-29 09:07 | NUR ---
CHRISTOPHER faxed home health referral to [facility] Address: [address] [place] [address] .
--- NOTE | 2018-08-29 09:09 | NUR ---
UR NOTE: CHRISTOPHER contacted Lizabeth, aftercare coordinator at [facility] [phone] ext [phone] and informed her pt needs after care appointments to psych and therapy as she is discharging on this present day. Lizabeth informed CHRISTOPHER that she does not have appointments set up for pt and would try to have appointments by pts discharge time.
--- NOTE | 2018-08-29 14:30 | NUR ---
refused discharge photos but signed all dc papers.
--- NOTE | 2018-08-29 15:22 | NUR ---
DISCHARGE NOTE: Pt was discharged at 3:00pm via [facility] home to [address] [place] [address]. Pt has no family to notify. Pt was agitated and did not want to leave, pt began cursing at [facility] stating to "leave her the fuck alone." SW intervened and asked pt to get up and sit on the wheelchair. Pt sat on wheelchair and was discharged. Pt denied suicidal/homicidal ideations and denied visual/auditory hallucinations. SW faxed home health referral to [facility] Address: [address] [place] [address] . Pt will schedule a follow up appointment with Diamond Assorter: Dr. Sarahy Waddell [address] [facility], [place] [address] and has an appointment with Psychologist Dr. Rubio on 09/05/18 at 2:00pm [address] [facility] [address] [facility] [address], and has an appointment with Psychiatrist Dr. Calix on 09/22/18 at 1:30pm [address] [facility]. [facility] [address], [facility] [address]. The multidisciplinary exitcare form was done, printed, signed, and given to the patient.
--- NOTE | 2018-08-30 12:09 | NUR ---
UR NOTE: CHRISTOPHER faxed discharge summary to Adelina ([phone]), window caser at [facility] to the fax number: [phone]
== END 2018-08-29 15:15 | disposition home health service (06) | DRG 885 ==
LOC: ER 19:11 → GPS 08-20 20:40
PROVIDERS: ADMIT Psychiatry & Neurology Psychiatry; ATTEND Psychiatry & Neurology Psychiatry
DX: F29 Unspecified psychosis not due to a substance or known physiological condition (principal); N17.0 Acute kidney failure with tubular necrosis; N18.9 Chronic kidney disease, unspecified; E44.1 Mild protein-calorie malnutrition; N39.0 Urinary tract infection, site not specified; F39 Unspecified mood [affective] disorder; E66.9 Obesity, unspecified; E86.9 Volume depletion, unspecified; D72.829 Elevated white blood cell count, unspecified; E88.09 Other disorders of plasma-protein metabolism, not elsewhere classified; R73.9 Hyperglycemia, unspecified; Z68.30 Body mass index [BMI] 30.0-30.9, adult; Z73.6 Limitation of activities due to disability; B96.89 Other specified bacterial agents as the cause of diseases classified elsewhere
CPT/HCPCS: 36415; 80048-TC; 80061-TC; 80076-TC; 80305; 81000-TC; 82565-TC; 82962-TC; 85025-TC; 87081-TC; 87086-TC; 87186-TC; G0480; J2060; J3490

== ENCOUNTER 2019-03-13 17:27 | Emergency (ER) | payer OTHER ==
[~2019-03-13] VITALS: Ht 154.9 cm; Wt 83.9 kg
[~2019-03-13 17:27] MED LIST: AMIN30LI2 PO; CELE200C PO; CLOT10TR MM; CYAN500T65 PO; DOCU-141 PO; GABA-534 PO; HYDR30CR99 RC; LINA145C PO; MULT-447 PO; NA P133E RC; ONDA4TAB5 PO; PANT40TA2 PO; RISP0.253 PO; SENN-168 PO; TRAM50TA2 PO
--- NOTE | 2019-03-13 17:42 | NUR ---
PT BIB SELF C/O CONSTIPATION FOR 4 DAYS, PT IS AAOX3, NOT IN RESPIRATORY DISTRESS, V/S STABLE, KEPT RESTED AND COMFORTABLE, WILL CONTINUE TO MONITOR.
--- NOTE | 2019-03-13 17:45 | NUR ---
SEEN AND EXAMINED BY .
--- NOTE | 2019-03-13 17:53 | NUR ---
IV LINE ESTABLISHED, BLOOD DRAWNED AND SENT TO LAB.
[2019-03-13 17:58] LABS: BASOPHILS # (AUTO) 0.1 /CMM (0.0-0.2); BASOPHILS % (AUTO) 0.7 % (0.0-2.0); HEMATOCRIT 41 % (33-45); HEMOGLOBIN 13.5 g/dL (11.5-14.8); LYMPHOCYTES # (AUTO) 2.3 /CMM (0.8-4.8); LYMPHOCYTES % (AUTO) 20.4 % (20.0-44.0); MEAN CORPUSCULAR HGB CONC 33 g/dl (31.0-36.0); MEAN CORPUSCULAR VOLUME 89 fL (82-100); MONOCYTES # (AUTO) 0.5 /CMM (0.1-1.30); MONOCYTES % (AUTO) 4.7 % (2.0-12.0); NEUTROPHILS # (AUTO) 8.3 /CMM (1.8-8.9); NEUTROPHILS % (AUTO) 73.2 % (43.0-81.0); PLATELET COUNT (AUTO) 256 /CMM (150-450); RED BLOOD CELL COUNT(AUTO) 4.55 MIL/uL (4.0-5.2); WHITE BLOOD COUNT (AUTO) 11.4 K/uL (4.3-11.0)
[2019-03-13 18:04] LABS: CALCIUM, SERUM 9.2 mg/dL (8.5-10.1); CARBON DIOXIDE 24 mmol/L (21-32); CHLORIDE 108 mmol/L (98-107); CREATININE 1.6 mg/dL (0.6-1.3); GLUCOSE 128 mg/dL (74-106); POTASSIUM 4.4 mmol/L (3.5-5.1); SODIUM SERUM 142 mmol/L (136-145); UREA NITROGEN, BLOOD 28 mg/dL (7-18)
[2019-03-13 18:10] LABS: ALANINE AMINOTRANSFERASE 70 U/L (12-78); ALBUMIN 3.3 g/dL (3.4-5.0); ALKALINE PHOSPHATASE 180 U/L (46-116); ASPARTATE AMINOTRANSFERASE 21 U/L (15-37); BILIRUBIN,DIRECT 0.1 mg/dL (0.0-0.2); BILIRUBIN,TOTAL 0.2 mg/dL (0.2-1.0); LIPASE 146 U/L (73-393); TOTAL PROTEIN, SERUM 6.8 g/dL (6.4-8.2)
[2019-03-13] MEDS ORDERED: BISACODYL SUPP (10 MG) 10 MG/SUPP.RECT SUPP.RECT RC ONE ×2 (18:14→18:30)
[2019-03-13] MEDS ORDERED: ONDANSETRON HCL/PF 4 MG/2 ML VIAL ONE (18:14)
[2019-03-13] MEDS ORDERED: IV NS 0.9% 500 ML BAG IV ONE ×2 (18:30→19:30)
[2019-03-13] MEDS ORDERED: ONDANSETRON HCL/PF - ER 4 MG/2 ML VIAL IV ONE (18:30)
[2019-03-13 19:39] LABS: APPEARANCE,URINE Clear (CLEAR); BILIRUBIN,URINE Negative (NEGATIVE); BLOOD, URINE Negative Ery/uL (NEGATIVE); COLOR,URINE Light yellow (YELLOW); KETONES,URINE Negative (NEGATIVE); LEUKOCYTE ESTERASE ,URINE Negative (NEGATIVE); NITRITE, URINE Negative (NEGATIVE); PH,URINE 5.5 (5.0-8.0); PROTEIN,URINE Negative (NEGATIVE); UGLUCOSE Negative (NEGATIVE); UROBILINOGEN,URINE 0.2 EU/dL (0.2)
--- NOTE | 2019-03-13 20:11 | NUR ---
Patient is resting comfortably in bed with eyes closed. Easily aroused. VSS
--- NOTE | 2019-03-13 20:28 | NUR ---
CALLED [facility] REGARDING PT DISCHAGRE SPOKE TO KOFI (NURSING CAPABILITY LEAD) STATES "PT SIGNED OUT AMA AND THEY ARE UNABLE TO TAKE THE PT BACK".
[2019-03-13] MEDS ORDERED: NA PHOS,M-B/NA PHOS,DI-BA 1 EA ENEMA RC ONE (20:30)
[2019-03-13] MEDS ORDERED: ACETAMINOPHEN 325 MG TABLET PO ONE (21:30)
[2019-03-13] MEDS ORDERED: ACETAMINOPHEN 325 MG TABLET ONE (21:43)
[2019-03-13] MEDS ORDERED: LORAZEPAM 1 MG TABLET ONE (22:45)
[2019-03-13] MEDS ORDERED: LORAZEPAM 1 MG TABLET PO ONE (23:00)
--- NOTE | 2019-03-14 01:23 | NUR ---
PT ASLEEP, NO ACUTE DISTRESS NOTED, RESP EVEN AND UNLABORED. CALL LIGHT WITHIN REACH. WILL CONTINUE TO MONITOR PT.
[2019-03-14] MEDS ORDERED: ACETAMINOPHEN ES 500 MG TABLET PO ONE (11:00)
--- NOTE | 2019-03-14 11:09 | NUR ---
PT ENDORSED TO ME BY THANH MARTÍNEZ
--- NOTE | 2019-03-14 11:10 | NUR ---
report given to Mimi RN for alison.
[2019-03-14] MEDS ORDERED: ACETAMINOPHEN ES 500 MG TABLET ONE (11:16)
--- NOTE | 2019-03-14 11:22 | NUR ---
PRINTING EQUIPMENT MECHANIC APPRENTICE MARIA DEL CARMEN AT BEDSIDE
--- NOTE | 2019-03-14 11:57 | NUR ---
PT AT BEDSIDE FOR WALKER TRAINING
--- NOTE | 2019-03-14 12:07 | NUR ---
PT WALKING AROUND, ACTING HYSTERICAL. ASKING FOR MD AND ATIVAN. ENCOURAGED HER BACK TO BED. MD NOTIFIED.
--- NOTE | 2019-03-14 12:21 | NUR ---
DR RECINOS AT BEDSIDE FOR RECTAL EXAM
--- NOTE | 2019-03-14 12:36 | NUR ---
SPOKE WITH ANTHONY FROM [facility] FOR PT UPDATE. ANTHONY WILL SPEAK WITH THEIR PROVIDER AND CALL ER MD BACK.
[2019-03-14] MEDS ORDERED: LIDOCAINE VISCOUS 2% UD 15 ML UDC ONE ×2 (12:51→17:23)
[2019-03-14] MEDS ORDERED: LORAZEPAM 1 MG TABLET ONE (12:56)
[2019-03-14] MEDS ORDERED: LORAZEPAM 1 MG TABLET PO ONE (13:00)
[2019-03-14] MEDS ORDERED: LIDOCAINE VISCOUS 2% UD 15 ML UDC MM ONE ×2 (13:00→17:30)
--- NOTE | 2019-03-14 14:17 | NUR ---
CALLED DIETARY FOR FOOD TRAY
--- NOTE | 2019-03-14 15:20 | NUR ---
CALLED CASE MANAGEMENT, GOING TO [facility], [place] ETA AT 1800, PATIENT INFOMED AND AGGREED, DR ENGLISH AWARE
--- NOTE | 2019-03-14 15:28 | NUR ---
TRANSFER INFO: [facility] # [id number] PT [facility] [address] [place]. [address] 2-4 HOUR ETA (APPROX) 1800. CALL [phone] FOR TRANSPORT ETA UPDATE
--- NOTE | 2019-03-14 17:07 | NUR ---
20 MIN ETA BY [facility]
--- NOTE | 2019-03-14 17:40 | NUR ---
Patient discharged to home in stable condition. Written and verbal after care instructions given. Patient verbalizes understanding of instruction.IV removed. Catheter intact and site benign. Pressure and 4x4 applied to site. No bleeding noted.
[2019-03-14 18:19] VITALS: BP 134/88
== END 2019-03-14 17:40 | disposition home or self-care (01) ==
LOC: ER 17:33
DX: K59.00 Constipation, unspecified (principal); E86.0 Dehydration; F29 Unspecified psychosis not due to a substance or known physiological condition; N18.9 Chronic kidney disease, unspecified; K58.9 Irritable bowel syndrome, unspecified; Z90.89 Acquired absence of other organs; Z88.0 Allergy status to penicillin; Z88.1 Allergy status to other antibiotic agents
CPT/HCPCS: 36415; 80048; 80076; 81001; 83690; 85025; 96374; 97116; 97161; 97530; 99284; J2405 ×2; 81000-TC; J7040